=== PATIENT | male | born 1945 | race African-American/Black ===

== ENCOUNTER 2019-04-01 09:22 | Inpatient (IN) ==
--- NOTE | 2019-03-26 14:14 | Anesthesiology Consultation ---
Date of Service March 26, 2019 Assessment & Plan Chart Review Chart Review: Acceptable Risk for Surgery and Patient NOT seen in Pre Admission Testing Consults Requested none ASA ASA4 Proposed Anesthesia Anesthesia Type: General Anesthesia Line Insertion: Arterial line History Surgery Operation Date: 04/01/19 07:30 Proposed Procedures p Robotic Video Assisted Thoracoscopy - Zoltan Galdamez MD, FACS Height/Weight Height: 5 ft 6 in Weight: 74.843 kg Allergies Allergy/AdvReac Type Severity Reaction Status Date / Time penicillin V Allergy Unknown UNKN Verified 03/11/19 08:20 Medications Home Medications Medication Instructions Recorded Confirmed Last Taken aspirin [Aspirin Low Dose] 81 mg PO QAM 01/06/19 03/11/19 01/29/19 21:00 enalapril maleate 5 mg PO QAM 01/06/19 03/11/19 01/29/19 08:00 metformin 500 mg PO BID 01/06/19 03/11/19 01/29/19 21:00 timolol 1 drp OPHTHALMIC (EYE) BID 01/06/19 03/11/19 01/29/19 17:00 Past Medical History Medical History Diabetes mellitus, type 2 NIDDM HTN (hypertension) Heart murmur per anesthesia questionnaire Hemoptysis CURRENT ISSUE History of anemia Hx of eczema Inmate in correctional facility [facility] Exercise / Class Metabolic Activity III < 4 Walking/Shop/Light housework Past Surgical History Surgical History Hx of cataract extraction S/P bronchoscopy with biopsy p Endobronchial Ultrasound Flexible Bronchoscopy with Biopsies dr. Galdamez 01-30-19 Past Anesthesia History No Hx of Anesthesia Complications and No Family Hx of Anesthesia Complications History of PONV No Hx of PONV and No Hx of Motion Sickness Social History Smoking Status: Former smoker (QUIT AT AGE 55, SMOKED APPROXIMATELY 30 YEARS) Do You Dip or Chew Tobacco: No Hx Alcohol Use: No Hx Substance Use: No Testing Laboratory Results WBC: 03/22/2019 Hcg: Hct: PLATELETS: SODIUM: 143 POTASSIUM: CHLORIDE: 101 CO2: 25 BUN: 21 CREATININE: 0.3 GLUCOSE: PT: PTT: INR: UA: TYPE AND SCREEN: Electrocardiogram Date: 03/11/19 Findings: + NSR @ (at 93 )
[~2019-04-01 09:22] MED LIST: LR 15ML/HR IV SCH
[2019-04-01 10:37] LABS: Basophils # (auto) 0.04 K/uL (0-0.2); Basophils % (auto) 0.6 %; Eosinophils # (auto) 0.11 K/uL (0-0.5); Eosinophils % (auto) 1.7 %; Hematocrit (blood only) 33.7 % (42-52); Lymphocytes # (auto) 1.89 K/uL (1.2-3.4); Lymphocytes % (auto) 29.4 %; Mean Corpuscular Volume 88.9 fL (80-100); Mean Platelet Volume 11.4 fL (7.4-10.4); Monocytes # (auto) 0.46 K/uL (0.11-0.59); Monocytes % (auto) 7.2 %; Neutrophils # (auto) 3.93 K/uL (1.4-6.5); Neutrophils % (auto) 61.1 %; Platelet Count 206 K/uL (130-400); RDW Coefficient of Variation 14.2 % (11.5-14.5); RDW Standard Deviation 46.3 fL (36.4-46.3); Red Blood Count 3.79 M/uL (4.7-6.1); White Blood Count 6.43 K/uL (4.8-10.8)
[2019-04-01 10:38] LABS: Mean Corpuscular Hgb Conc 32.6 g/dL (32-36)
--- NOTE | 2019-04-01 12:34 | History & Physical Report ---
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 We can proceed with a possible segmentectomy although remained up offering him a lobectomy. His pulmonary function show he would tolerate if necessary although he is rather short of breath that I would prefer to avoid this if possible. We had a long discussion in the office about possible risks including not limited to air leaks, bleeding lung injury, pneumonia, infections and blood clots. He understands. We will proceed on 04/01/2019. Present on Admission?: Yes (2) Mediastinal lymphadenopathy: Present on Admission?: Yes History of Present Illness This is a 73-year-old inmate who has a chronic cough which is productive of sputum. He worked up and found to have occlusion of the anterior segment of his right upper lobe. I bronchoscoped him and indeed this bronchus is occluded however all pathology has been benign. He is been worked up completely in multiple physicians have been involved. We are going to proceed with a segmentectomy of the anterior segment, possible lobectomy of his right upper lobe today. We had a long talk about this. He understands. We will proceed with a robot-assisted right thoracoscopy and resection of this chronically atelectatic area. Primary Care Provider: ARLEY Dawson Allergies Allergy/AdvReac Type Severity Reaction Status Date / Time penicillin V Allergy Unknown UNKN Verified 04/01/19 10:18 Home Medications Home Medications Medication Instructions Recorded Confirmed Type aspirin [Aspirin Low Dose] 81 mg PO QAM 01/06/19 04/01/19 History enalapril maleate 5 mg PO QAM 01/06/19 04/01/19 History metformin 500 mg PO BID 01/06/19 04/01/19 History timolol 1 drp OPHTHALMIC (EYE) BID 01/06/19 04/01/19 History Past Med/Surg History Medical History Diabetes mellitus, type 2 NIDDM HTN (hypertension) Heart murmur per anesthesia questionnaire Hemoptysis CURRENT ISSUE History of anemia Hx of eczema Inmate in correctional facility [facility] Surgical History Hx of cataract extraction S/P bronchoscopy with biopsy p Endobronchial Ultrasound Flexible Bronchoscopy with Biopsies dr. Galdamez 01-30-19 Social History Preferred Language: Vietnamese Communication Ability: Effective Composite Laminator Required: No Beliefs That Will Affect Care: None Current Living Situation: Other Other Information That Helps Us Care for You: No Smoking Status: Former smoker (QUIT AT AGE 55, SMOKED APPROXIMATELY 30 YEARS) Do You Dip or Chew Tobacco: No ; Second Hand Exposure: No ; Tobacco Cessation Education Requested by Patient: No Hx Alcohol Use: No Hx Substance Use: No Review of Systems Review of Systems: All since was reviewed and really the only thing of note is the fact that the patient has dyspnea on exertion that has worsened. He used to be quite active playing handball and other sports is unable to do so although he is 73. Otherwise there have been no changes. The other systems were unremarkable. Physical Exam Physical Exam: Well-developed well-nourished male who stands 5 feet 6 inches tall weighs about 148 pounds. He looks much younger than his stated age. He is awake and alert. Extra documents are intact. Pupils are equal round reactive. Sclera anicteric. He is edentulous with upper and lower denture plates. Neck is supple. He has no supraclavicular cervical lymphadenopathy. He has mildly decreased breath sounds but really moving air well without wheezing or rails. He has a regular rate and rhythm of his heart. He has no carotid bruits or thyroid nodules. His abdomen is flat soft nontender. Good peripheral pulses. He is awake alert and oriented. Has no focal deficits. He has no joint effusions. Neurologically is completely intact. Cranial nerves II through XII are intact and he is awake alert oriented conversive. Results & Data Vital Signs (Past 12 Hours) Vital Signs Temp Pulse Resp BP Pulse Ox 04/01/19 10:32 36.7 C 94 H 20 162/99 H 99 PG Care Time/CCT Total # of Minutes Spent Total Time Spent with Patient: Total time spent is greater than 50% in coordination of care (as documented) at patient's floor/unit and/or counseling patient:
[2019-04-01] MEDS ORDERED: BUPIVACAINE 0.5 % 5 MG/1 ML MPF 30ML VIAL ONE (12:38)
[2019-04-01] MEDS ORDERED: BUPIVACAINE LIPOSOME 1.3% 266 MG/20 ML VIAL ONE (12:38)
[2019-04-01] MEDS ORDERED: SODIUM CHLORIDE 0.9% PF 50 ML VIAL ONE (12:38)
[2019-04-01] MEDS ORDERED: DEXAMETHASONE SOD INJ 4 MG/ML VIAL ONE (12:41)
[2019-04-01] MEDS ORDERED: ONDANSETRON INJ 2 MG/ML 2 ML VIAL ONE ×2 (12:41→14:44)
[2019-04-01] MEDS ORDERED: PROPOFOL IV EMULSION 10 MG/ML 20 ML VIAL IV ONE ×2 (12:41→16:12)
[2019-04-01] MEDS ORDERED: MIDAZOLAM HCL 1 MG/ML 2ML VIAL ONE (12:41)
[2019-04-01] MEDS ORDERED: ePHEDrine sulfate 50 MG/ML SYR ONE (12:41)
[2019-04-01] MEDS ORDERED: ROCURONIUM BROMIDE 10 MG/ML 5 ML VIAL ONE (12:41)
[2019-04-01] MEDS ORDERED: PHENYLEPHRINE 100MCG/ML 5ML SYR ONE (12:41)
[2019-04-01] MEDS ORDERED: fentaNYL citrate 100 MCG/2 ML VIAL ONE (12:42)
[2019-04-01] MEDS ORDERED: CLINDAMYCIN PHOS 300 MG/2 ML VIAL ONE (14:43)
[2019-04-01] MEDS ORDERED: PHENYLEPHRINE HCL 10 MG/ML VIAL ONE ×2 (14:43→16:31)
[2019-04-01] MEDS ORDERED: ESMOLOL HCL INJ 10 MG/ML 10ML VIAL IV ONE (14:44)
--- NOTE | 2019-04-01 17:40 | Post Operative Brief Note ---
PG Immediate Post Op with CF Date of Surgery April 01, 2019 Pre & Post Diagnosis Operation Date: 04/01/19 11:30 Pre-Op Diagnosis: Right Upper Lobe Bronchial Occlusion Unknown Etiology Post-Op Diagnosis: Right Upper Lobe Bronchial Occlusion Unknown Etiology I identified the patient and participated in the time-out.: Yes Procedure Operation Date: 04/01/19 11:30 Actual Procedures p Right Robotic Video-Assisted Thoracoscopy with Right Upper Lobectomy(Right) - Zoltan Galdamez MD, FACS Surgeon Zoltan Galdamez MD, FACS Underwriting Clerk Nelson FUENTES Estimated Blood Loss 100 Findings Consistent with Post-Op Diagnosis Specimens Specimen Description: Permanent specimens (sent fresh) A: R8 lymph node B: Level 7 lymph node packet C. R11 lymph node D. R2 R4 lymph node bundle E. R10 lymph node x2 F. R4 Lymph node Frozen: 1. Portion of R4 lymph nodes 2. Right Upper Lobe for Bronchial Margin Portion of Level 7 lymph node packet sent for routine culture, gram stain, anaerobic/aerobic microbes, fungal smear and acid fast (AFB) R11 lymph node sent for routine culture, gram stain, anaerobic/aerobic microbes, fungal smear and acid fast (AFB) Drains Chest Tube and Chao Catheter
[2019-04-01] MEDS ORDERED: METOCLOPRAMIDE HCL INJ 5 MG/ML 2 ML VIAL IV ONE (18:00)
[2019-04-01] MEDS ORDERED: ATROPINE SULFATE 0.1 MG/ML 10ML SYR IV PRN (18:13)
[2019-04-01] MEDS ORDERED: HYDROmorphone INJ 1 MG/ML SYRINGE IV PRN (18:13)
[2019-04-01] MEDS ORDERED: ONDANSETRON INJ 2 MG/ML 2 ML VIAL IV PRN ×2 (18:13→19:19)
[2019-04-01] MEDS ORDERED: KETOROLAC 30 MG/ML VIAL IV PRN (18:13)
[2019-04-01] MEDS ORDERED: LABETALOL HCL IV 5 MG/ML 20ML IV ONE (18:14)
[2019-04-01] MEDS: LABETALOL HCL IV 5 MG/ML 20ML IV PRN ×3 (18:15→18:25)
--- NOTE | 2019-04-01 18:22 | XRay Report ---
XR chest 1V portable CLINICAL HISTORY: RUL postoperative evaluation COMPARISON STUDY: 01/30/2019 FINDINGS: Interval right apical postoperative resection changes. Small right apical pneumothorax with maximum pleural separation of 1.5 cm. Trace amount of supraclavicular subcutaneous emphysematous phyllis nge. Right apical chest drainage tube in position. IMPRESSION: Small right apical pneumothorax post right thoracotomy. The above report was generated using voice recognition software. It may contain grammatical, syntax or spelling errors. Electronically signed by: Winston Prakash M.D. 04/01/2019 6:21 PM
--- NOTE | 2019-04-01 18:43 | Anesthesiology Progress Note ---
Date of Service April 01, 2019 Anesthesia Post Procedure Vital Signs Vital Signs: Temp Pulse Pulse Resp BP BP Pulse Ox 04/01/19 18:35 80 18 176/105 H 98 04/01/19 18:25 81 15 163/110 H 97 04/01/19 18:15 88 18 183/100 H 100 04/01/19 18:07 36.0 C L 89 20 200/117 H 100 04/01/19 10:32 36.7 C 94 H 20 162/99 H 99 Transfer of Care Handoff Completed per policy Notes Mental Status: alert / awake / arousable Patient Amnestic to Procedure: Yes Nausea / Vomiting: adequately controlled Pain: adequately controlled Airway Patency, RR, SpO2: stable & adequate BP & HR: stable & adequate Hydration State: stable & adequate Anesthetic Complications: no major complications apparent
[2019-04-01] MEDS ORDERED: OXYCODONE HCL IR 5 MG TAB (IMMEDIATE RELEASE) PO PRN (19:19)
[2019-04-01] MEDS ORDERED: MoRPHine SULFATE 2 MG/ML CARP IV PRN (19:19)
--- NOTE | 2019-04-01 19:33 | Operative Report ---
DATE OF OPERATION: 04/01/2019 PREOPERATIVE DIAGNOSIS: Occlusion of bronchus, anterior segment, right upper lobe. POSTOPERATIVE DIAGNOSIS: Occlusion of bronchus, anterior segment, right upper lobe. PROCEDURE: Robot-assisted thoracoscopic right upper lobectomy and mediastinal lymphadenectomy. SURGEON: Zoltan Galdamez MD. INTERNAL MEDICINE PHYSICIAN: ALFREOD Paulino (Mr. Bolanos was present for the entire case. He was at the patient's bedside while I was at console). ANESTHESIA: General anesthesia with endotracheal intubation using a double lumen tube. SPECIFICS OF PROCEDURE AND FINDINGS: Salvador Manuel is a very nice 73-year-old inmate who has a remote history of cigarette smoking and has chronic obstructive pulmonary disease who was found to have occlusion of the segmental bronchus leading to the anterior segment of the right upper lobe. I bronchoscoped him and brushed him and did needle biopsies and we did not see evidence of malignancy. He had been ill from this. He continues to cough and has essentially purulent material draining from this highly stenotic airway and he has markedly dilated airways distal to this full of fluid. He has failed conservative management and we elected to proceed with an attempt at anterior segmentectomy of the anterior segment of the right upper lobe. The patient also has markedly enlarged lymph nodes, which are calcified. I brought the patient to the operating room and did a robot-assisted thoracoscopic dissection. I actually dissected out the veins very nicely. However, the lymph nodes were extremely difficult to dissect through; there was a tremendous amount of inflammation. After dividing the vein draining the anterior segment and dissecting out the vessels, I thought it was going to be not only difficult but hazardous. After spending quite a bit of time with this, I elected to proceed with a right upper lobectomy. It should be noted that I did bronchoscope this patient while he was on the table and there was no change. He still had purulent material draining from a subtotally occluded segmental bronchus leading to his anterior segment. I then proceeded with a right upper lobectomy. He did well and was extubated in the room with negligible blood loss. He tolerated it well. DESCRIPTION OF PROCEDURE: The patient was brought to the operating room and laid in supine position. General anesthesia induced and endotracheal intubation performed with a double lumen tube. The patient was placed in the left lateral decubitus position, right chest prepped and draped in usual sterile fashion. After appropriate timeout had been called and prophylactic antibiotics given, an incision was made in about the eighth interspace close to the mid axillary line with an 5 mm port. Upon entering, it could be seen we really had very little in the way of adhesions to the chest wall. Carbon dioxide was insufflated. We then put an 8 mm port anterior an interspace above this and an 8 mm port posterior and then put a 5 mm port more posterior an interspace below. I put in purchasing administrative assistant's port just above the diaphragm anteriorly between the camera port and the anterior most port. It should be noted that we mixed Exparel 266 mg in 20 mL of solution with 30 mL of 0.5% bupivacaine and 250 mL of normal saline. This was injected in each of the port sites before we made our incisions and also injected into the intercostal spaces to perform an intercostal block intrathoracically under thoracoscopic guidance. We then docked the robot. Upon entering, it could be seen that he had fairly well-developed fissures. I took down the inferior pulmonary ligament and dissected out level 9 and level 8 nodes. I then came upon the level 7 node. I removed this entire packet essentially intact. There were marked calcifications, very large. We did this with a [place] bipolar dissector and really had very little in the way of bleeding here. We had dissected out the bronchus nicely. I then dissected out the sump node from the level 11, which was between the right upper lobe bronchus and the bronchus intermedius distally. After removing this large calcified node, it exposed the posterior ascending or A3 artery quite nicely. I then went above this and dissected out the level 2 and 4 nodes, they were markedly calcified. I then lifted up the azygos and took the level 10 nodes off essentially in their entirety. I then anteriorly dissected out the pleura posterior to the phrenic nerve, carried it down to below the takeoff of the middle lobe vein. The veins were easily identified. I then went into the fissure and completed this both posteriorly and anteriorly and identified the artery and the vein. The nodes were markedly enlarged and stuck. I then went anteriorly and I dissected out the vein draining the anterior segment and divided it with an Endo-FREDERIC stapler. We left the apical vein and the vein draining the posterior vein and then dissected out the bronchus. The bronchus and the artery were quite stuck, in fact we got into bleeding with the remaining veins and artery, which was easily controlled with clips. However, it was markedly adherent. I did divide the arteries to the anterior segment. That was a very difficult dissection. I then elected to proceed with a lobectomy. At this point, it was much easier just to proceed with dividing the A3 artery and then the apical anterior artery with Endo-FREDERIC staplers. I then fired a stapler across the bronchus. I then inflated the lung, we saw no evidence of an air leak. An Endobag was used and we removed the upper lobe through the assistance port, although we had to open it a bit. We then placed a 24-Turkmen chest tube in the camera port and directed towards the apex and held in place with heavy silk suture. The larger incisions were closed with 0 Vicryl to reapproximate the muscle and fascia. 4-0 Monocryl was used in running subcuticular fashion to approximate the wound edges. As stated, there was a tiny air leak at the conclusion of the case. Blood loss was negligible. He was stable throughout the case and awakened without difficulty from anesthesia and was extubated in the room. He was transported to postanesthesia care unit in stable condition. I attest to the content of the Intraoperative Record and any orders documented therein. Any exception s are noted below.
[2019-04-01] MEDS ORDERED: GLUCOSE 10 TABS/TUBE PO PRN (20:00)
[2019-04-01] MEDS ORDERED: GLUCAGON FOR INJ 1 MG VIAL IM PRN (20:00)
[2019-04-01] MEDS ORDERED: CARBOHYDRATES FOR HYPOGLYCEMIA PO PRN (20:00)
[2019-04-01] MEDS ORDERED: GLUCOSE 40% GEL 15 GM TUBE PO PRN (20:00)
[2019-04-01] MEDS ORDERED: DEXTROSE 50% 50 ML SYRINGE IV PRN (20:00)
[2019-04-01] MEDS ORDERED: PNEUMOCOCCAL POLYSACCHARIDES 25 MCG/0.5 ML VIAL/SYR IM ONE (21:00)
[2019-04-01] MEDS ORDERED: INFLUENZA VACCINE HIGH DOSE 65+ 0.5 ML SYR IM ONE (21:00)
[2019-04-01] MEDS ORDERED: PNEUMOCOCCAL ADMINISTRATION CHARGE ONE (21:00)
[2019-04-01] MEDS ORDERED: INFLUENZA ADMINISTRATION CHARGE ONE (21:00)
[2019-04-01] MEDS: ACETAMINOPHEN 1,000 MG/100 ML VIAL IV SCH (21:45)
[2019-04-01] MEDS: DOCUSATE SODIUM 100 MG CAP PO SCH (21:47)
[2019-04-01] MEDS: TIMOLOL MALEATE 0.25% OP SOLN 5 ML BTL OP SCH (21:48)
[2019-04-01] MEDS: INSULIN ASPART 100 UNITS/ML 3 ML PEN SC SCH (21:50)
[2019-04-01] MEDS: SODIUM CHLORIDE 0.9% 1000ML 1,000 ML IV SCH (23:58)
[2019-04-02] MEDS: METOCLOPRAMIDE HCL INJ 5 MG/ML 2 ML VIAL IV SCH ×2 (01:52→11:00)
[2019-04-02] MEDS: ACETAMINOPHEN 1,000 MG/100 ML VIAL IV SCH (03:26)
[2019-04-02] MEDS ORDERED: CLINDAMYCIN PHOS 900 MG/6 ML VIAL IV SCH (06:00)
[2019-04-02 06:26] LABS: Basophils # (auto) 0.01 K/uL (0-0.2); Basophils % (auto) 0.1 %; Hematocrit (blood only) 31.4 % (42-52); Hemoglobin 10.2 g/dL (14.0-18.0); Immature Granulocytes # (auto) 0.03 K/uL (0.00-0.02); Immature Granulocytes % (auto) 0.2 %; Lymphocytes # (auto) 1.43 K/uL (1.2-3.4); Lymphocytes % (auto) 11.6 %; Mean Corpuscular Hemoglobin 29.1 pg (25-34); Mean Corpuscular Volume 89.5 fL (80-100); Mean Platelet Volume 11.6 fL (7.4-10.4); Monocytes # (auto) 1.44 K/uL (0.11-0.59); Monocytes % (auto) 11.7 %; Neutrophils # (auto) 9.45 K/uL (1.4-6.5); Neutrophils % (auto) 76.4 %; Platelet Count 193 K/uL (130-400); RDW Coefficient of Variation 14.4 % (11.5-14.5); RDW Standard Deviation 47.5 fL (36.4-46.3); Red Blood Count 3.51 M/uL (4.7-6.1); White Blood Count 12.36 K/uL (4.8-10.8)
[2019-04-02 06:35] LABS: Mean Corpuscular Hgb Conc 32.5 g/dL (32-36)
[2019-04-02 06:53] LABS: BUN Creatinine Ratio 11.8 (10-20); Calcium 7.9 mg/dl (8.5-10.1); Creatinine Clr Calc Pharmacy 29.4 ml/min; Est GFR (African American) 37.2; Est GFR (Non-African American) 32.1; Potassium 4.9 mmol/L (3.5-5.1)
--- NOTE | 2019-04-02 07:24 | XRay Report ---
XR chest 1V portable HISTORY: 73 years-old Male RUL follow-up study in a patient with postoperative changes of the right lung COMPARISON: Chest radiograph 04/01/2019 TECHNIQUE: Portable AP view of the chest FINDINGS: Cardiomediastinal and hilar silhouettes are unchanged. Postoperative changes of the right lung. Right -sided chest tube is noted with distal tip terminating adjacent to the right lung apex, likely latera l in relation to comparison study. There appears to be decreased size of the right apical pneumothora x, now with pleural separation of 11 mm. Mild subcutaneous emphysema of the right supraclavicular dis tribution. Unchanged right hemidiaphragmatic elevation. Degenerative changes of the shoulders and spi ne. IMPRESSION: 1. Postoperative changes of the right lung with decreased size of the small right apical pneumothorax . 2. Right-sided chest tube appears to be slightly lateral in position in relation to yesterday's exam. The above report was generated using voice recognition software. It may contain grammatical, syntax o r spelling errors. Electronically signed by: Solitario Shanks M.D. 04/02/2019 7:22 AM
--- NOTE | 2019-04-02 08:15 | Progress Note ---
DATE: 04/02/2019 Mr. Manuel was seen today one day status post a robot-assisted thoracoscopic right upper lobectomy. His gross finding on pathology were interesting. He has an occlusion of the segmental bronchus in the right upper lobe and I attempted a segmentectomy; however, the lymph nodes were very adherent and it was very difficult. For this reason, I performed a right upper lobectomy which his pulmonary function studies showed he would tolerate well. The patient is on room air today. He has been ambulating in the hallway. He does not have a productive cough. He has no air leak. He has drained very little from his chest tube. His chest x-ray looks good. All in all I am quite pleased with him. We are going to probably remove his chest tube in the morning. The fungal smears and gram stains have been negative for any organisms to date. The gross findings in the pathology lab when we performed frozen section were impressive. His airways in his anterior segment of the right upper lobe were indeed dilated and full of what appeared to be purulent material. This would account for his productive cough for the last several months. He has tolerated this well. We will probably remove his chest tube in the morning. [facility] CAMPUSFilomena
--- NOTE | 2019-04-02 08:46 | Anesthesiology Progress Note ---
Date of Service April 02, 2019 Anesthesia Post Procedure Vital Signs Vital Signs: Temp Pulse Pulse Resp BP BP Pulse Ox 04/02/19 07:15 36.8 C 86 18 119/68 91 04/02/19 05:30 95 04/02/19 05:15 36.7 C 86 18 120/65 92 04/02/19 03:15 36.8 C 95 H 18 118/69 93 04/02/19 01:20 36.7 C 91 H 16 94/59 L 94 04/01/19 23:15 36.8 C 94 H 16 94/53 L 94 04/01/19 22:19 37.1 C 105 H 20 154/78 H 98 04/01/19 21:10 37.1 C 101 H 20 144/81 H 98 04/01/19 20:25 36.9 C 102 H 18 153/96 H 94 04/01/19 19:45 36.7 C 83 16 169/87 H 96 04/01/19 19:22 36.5 C 84 18 164/91 H 95 04/01/19 18:55 82 18 173/98 H 98 04/01/19 18:45 36.4 C L 82 18 155/100 H 98 04/01/19 18:35 80 18 176/105 H 98 04/01/19 18:25 81 15 163/110 H 97 04/01/19 18:15 88 18 183/100 H 100 04/01/19 18:07 36.0 C L 89 20 200/117 H 100 04/01/19 10:32 36.7 C 94 H 20 162/99 H 99 Pain Intensity Right Chest: Pain Intensity: 5 Notes Mental Status: alert / awake / arousable and participated in evaluation Patient Amnestic to Procedure: Yes Nausea / Vomiting: adequately controlled Pain: adequately controlled Airway Patency, RR, SpO2: stable & adequate BP & HR: stable & adequate Hydration State: stable & adequate Anesthetic Complications: no major complications apparent and Pt Satisfied with anesthetic care
[2019-04-02] MEDS ORDERED: ENALAPRIL MALEATE 5 MG TAB PO SCH (09:00)
[2019-04-02] MEDS: TIMOLOL MALEATE 0.25% OP SOLN 5 ML BTL OP SCH ×2 (09:30→20:16)
[2019-04-02] MEDS: ASPIRIN 81 MG ECTAB PO SCH (09:30)
[2019-04-02] MEDS: DOCUSATE SODIUM 100 MG CAP PO SCH ×2 (09:30→20:15)
[2019-04-02] MEDS: INSULIN ASPART 100 UNITS/ML 3 ML PEN SC SCH ×4 (09:31→21:16)
[2019-04-02] MEDS: ENOXAPARIN INJ 30 MG/0.3 ML SYR SQ SCH (09:33)
[2019-04-02] MEDS: SODIUM CHLORIDE 0.9% 1000ML 1,000 ML IV SCH (10:15)
[2019-04-02] MEDS: ACETAMINOPHEN 325 MG TAB PO SCH ×3 (11:00→23:40)
[2019-04-03] MEDS: ACETAMINOPHEN 325 MG TAB PO SCH (05:32)
[2019-04-03 06:18] LABS: BUN Creatinine Ratio 11.7 (10-20); Calcium 8.2 mg/dl (8.5-10.1); Creatinine Clr Calc Pharmacy 36.6 ml/min; Est GFR (African American) 48.5; Est GFR (Non-African American) 41.8; Potassium 4.7 mmol/L (3.5-5.1)
--- NOTE | 2019-04-03 07:19 | XRay Report ---
XR chest 1V portable CLINICAL HISTORY: RUL COMPARISON STUDY: Chest radiograph April 02, 2019. FINDINGS: Right apical chest tube is in place. Elevation of the right hemidiaphragm is noted. There i s no evidence for pulmonary edema. No pneumothorax is identified. Cardiac mediastinal silhouette is u nremarkable. IMPRESSION: Right chest tube in place. No pneumothorax identified. Electronically signed by: Terrence Celaya M.D. 04/03/2019 7:18 AM
[2019-04-03] MEDS: INSULIN ASPART 100 UNITS/ML 3 ML PEN SC SCH (09:11)
[2019-04-03] MEDS: ENOXAPARIN INJ 30 MG/0.3 ML SYR SQ SCH (09:12)
[2019-04-03] MEDS: DOCUSATE SODIUM 100 MG CAP PO SCH (09:12)
[2019-04-03] MEDS: ASPIRIN 81 MG ECTAB PO SCH (09:12)
[2019-04-03] MEDS: TIMOLOL MALEATE 0.25% OP SOLN 5 ML BTL OP SCH (09:13)
--- NOTE | 2019-04-03 09:22 | XRay Report ---
XR chest 1V portable CLINICAL HISTORY: tube removal COMPARISON STUDY: 04/03/2019 FINDINGS: Interval removal of the right-sided chest tube. No significant postprocedural pneumothorax. Lungs remain grossly clear. IMPRESSION: No evidence for pneumothorax post right-sided chest tube removal. The above report was generated using voice recognition software. It may contain grammatical, syntax or spelling errors. Electronically signed by: Winston Prakash M.D. 04/03/2019 9:21 AM
--- NOTE | 2019-04-04 05:27 | Discharge Summary ---
DISCHARGE DIAGNOSES: 1. Chronic occlusion of anterior segment, right upper lobe with postobstructive atelectasis and pneumonia. 2. History of cigarette smoking. HOSPITAL COURSE: Salvador Manuel is a very nice 73-year-old incarcerated gentleman who has been having signs and symptoms of upper respiratory infection for well over a year. He was found to have atelectasis of the anterior segment of his right upper lobe and a bronchoscopy showed the segmental bronchus to be essentially occluded. This was biopsied several times and we did an endobronchial ultrasound and we saw no evidence of malignancy. After a long discussion and workup, we elected to proceed with surgery. On 04/01/2019, the patient underwent an uncomplicated robot-assisted thoracoscopic attempted a wedge resection; however, the lymph nodes were very hard and calcified and adherent. I elected to proceed with a lobectomy as we could see that he would tolerate it. It is still unclear to me exactly what the etiology of this problem is. His margins were negative for carcinoma. The patient did very well, was weaned off of oxygen a few hours after surgery. He is ambulating in the hallway, tolerating a regular diet. He was discharged home on postoperative day #2 after chest tube was removed. His x-ray looked quite good. He is on room air and ambulating. I think he is going to improve with this. He was [facility] on 04/03/2019 and we will see him back in the office in the next week or so with an x-ray.
== END 2019-04-03 12:12 | DRG 167 ==
LOC: ASU 09:22 → 3W 17:49

== ENCOUNTER 2019-04-03 16:18 | Observation (INO) ==
--- NOTE | 2019-04-03 17:45 | XRay Report ---
XR chest 1V portable CLINICAL HISTORY: Sepsis COMPARISON STUDY: 04/03/2019 FINDINGS: The heart is normal in size. There is elevation right hemidiaphragm. There is right hilar p rominence, unchanged from the prior study. Postsurgical changes of the right hemithorax are suspected . There is no failure. There is no focal pulmonary consolidation.[ IMPRESSION: Postsurgical change. No acute findings. Electronically signed by: John Elliott M.D. 04/03/2019 5:43 PM
[2019-04-03] MEDS ORDERED: SODIUM CHLORIDE 0.9% 1000ML 1,000 ML IV ONE (18:09)
[2019-04-03 18:27] LABS: Basophils # (auto) 0.03 K/uL (0-0.2); Basophils % (auto) 0.2 %; Eosinophils # (auto) 0.01 K/uL (0-0.5); Eosinophils % (auto) 0.1 %; Hematocrit (blood only) 32.1 % (42-52); Hemoglobin 10.3 g/dL (14.0-18.0); Immature Granulocytes # (auto) 0.04 K/uL (0.00-0.02); Immature Granulocytes % (auto) 0.3 %; Lymphocytes # (auto) 1.74 K/uL (1.2-3.4); Lymphocytes % (auto) 13.1 %; Mean Corpuscular Hemoglobin 28.7 pg (25-34); Mean Corpuscular Hgb Conc 32.1 g/dL (32-36); Mean Corpuscular Volume 89.4 fL (80-100); Mean Platelet Volume 11.8 fL (7.4-10.4); Monocytes # (auto) 1.39 K/uL (0.11-0.59); Monocytes % (auto) 10.5 %; Neutrophils # (auto) 10.08 K/uL (1.4-6.5); Neutrophils % (auto) 75.8 %; Platelet Count 208 K/uL (130-400); RDW Coefficient of Variation 14.7 % (11.5-14.5); RDW Standard Deviation 48.8 fL (36.4-46.3); Red Blood Count 3.59 M/uL (4.7-6.1); White Blood Count 13.29 K/uL (4.8-10.8)
[2019-04-03 18:31] LABS: INR 1.1 (0.9-1.1); Partial Thromboplastin Ratio 1.1; Partial Thromboplastin Time 30.2 Seconds (21.0-31.0); Prothrombin Time 10.9 Seconds (9.0-12.0)
[2019-04-03 18:39] LABS: Albumin Level 3.2 gm/dl (3.4-5.0); BUN Creatinine Ratio 11.4 (10-20); Blood Urea Nitrogen 17 mg/dl (7-18); Calcium 8.5 mg/dl (8.5-10.1); Carbon Dioxide 25 mmol/L (21-32); Chloride 104 mmol/L (98-107); Creatinine Clr Calc Pharmacy 39.3 ml/min; Est GFR (African American) 52.8; Est GFR (Non-African American) 45.6; Glucose 138 mg/dl (70-99); Sodium 134 mmol/L (136-145)
[2019-04-03 18:47] LABS: Alanine Aminotransferase 19 U/L (12-78); Albumin Globulin Ratio 0.6 (0.9-2); Alkaline Phosphatase 80 U/L (45-117); Aspartate Aminotransferase 26 U/L (15-37); Bilirubin,Total 0.5 mg/dl (0.2-1); Total Protein 8.2 gm/dl (6.4-8.2); Troponin I < 0.015 ng/ml (0-0.045)
[2019-04-03] MEDS ORDERED: ONDANSETRON INJ 2 MG/ML 2 ML VIAL IV PRN (19:27)
[2019-04-03] MEDS ORDERED: POLYETHYLENE (MIRALAX) 17 GM PACK PO PRN (19:27)
[2019-04-03] MEDS ORDERED: ACETAMINOPHEN 325 MG TAB PO PRN (19:27)
[2019-04-03] MEDS ORDERED: ALUMINUM/MAGNESIUM SUSP 30 ML UDC PO PRN (19:27)
[2019-04-03 19:56] LABS: Appearance Urine Clear (Clear); Bilirubin Urine Negative (Negative); Blood Urine Trace (Negative); Color Urine Yellow; Glucose Urine UA Negative (Negative); Ketones Urine Negative (Negative); Leukocyte Esterase Urine Negative (Negative); Nitrite Urine Negative (Negative); Protein Urine Trace (Negative); Urobilinogen Urine Negative (Negative); pH Urine 6.5 (4.5-7.5)
--- NOTE | 2019-04-03 19:59 | Emergency Department Note ---
Entered by Jadyn Cassidy acting as a scribe for Ever Sosa DO History of Present Illness General Chief complaint: Illness Stated complaint: FEVER/CHILLS Time Seen by Provider: 04/03/19 17:35 Source: patient and other (retirement) History of Present Illness Onset (ago): minute(s) (prior to arrival) Location: chest Pain Consistency: + intermittent Maximum Pain Intensity: 0 Quality: + other (increased heart rate) Associated symptoms: + other (temperature of 100) The patient is a 73 year old male who presents to the Emergency Room with complaints of an intermittent increased heart rate and a temperature of 100 beginning just prior to arrival. The patient is an inmate who was released from the hospital earlier today. The retirement states the patient visited the [facility] after arriving back at the retirement, and was told he was going back to the ED. Home Medications Home Medications Medication Instructions Recorded Confirmed Type aspirin [Aspirin Low Dose] 81 mg PO QAM 01/06/19 04/03/19 History enalapril maleate 5 mg PO QAM 01/06/19 04/03/19 History metformin 500 mg PO BID 01/06/19 04/03/19 History timolol 1 drp OPHTHALMIC (EYE) BID 01/06/19 04/03/19 History Allergies Allergy/AdvReac Type Severity Reaction Status Date / Time penicillin V Allergy Unknown UNKN Verified 04/03/19 16:38 Past Med/Surg History Medical History Diabetes mellitus, type 2 NIDDM HTN (hypertension) Heart murmur per anesthesia questionnaire Hemoptysis CURRENT ISSUE History of anemia Hx of eczema Inmate in [facility] facility [facility] History Hx of cataract extraction S/P bronchoscopy with biopsy p Endobronchial Ultrasound Flexible Bronchoscopy with Biopsies dr. Galdamez 01-30-19 Family History Other No pertinent family history Social History Preferred Language: Bangladeshi Communication Ability: Effective Lifter Required: No Beliefs That Will Affect Care: None Current Living Situation: Other Feels Safe at Home: Yes Smoking Status: Never smoker Second Hand Exposure: No ; Hx Alcohol Use: No Hx Substance Use: No Review of Systems See HPI for pertinent positives & negatives. and A total of 10 systems reviewed and were otherwise negative Physical Exam Vital Signs Vital Signs - 24 hr 04/03/19 16:31 Temperature 37.7 C H Temperature Source Oral Sepsis Recent Fever Within 48 Hours No Sepsis New/Unexplained Change in Mental Status No Sepsis Action Taken by Nursing No Action Required Pulse Rate 128 H Pulse Rhythm Regular Pulse Strength Normal Respiratory Rate 16 Respiratory Effort / Characteristics Non-Labored Respiratory Depth Normal Respiratory Pattern Regular Blood Pressure 141/108 H Blood Pressure Mean 119 Blood Pressure Position Lying Pulse Oximetry 94 Oxygen Delivery Method Room Air CONSTITUTIONAL/VITAL SIGNS: Reviewed / noted above. GENERAL: Non-toxic in appearance. INTEGUMENTARY: Warm, dry, and [place]. HEAD: Normocephalic. EYES: without scleral icterus or trauma. ENT/OROPHARYNX: clear and moist. LYMPHADENOPATHY/NECK: Is supple without lymphadenopathy or meningismus. RESPIRATORY: Lungs clear and equal. CARDIOVASCULAR: Tachycardic rate and normal rhythm. GI/ABDOMEN: Soft and nontender. No organomegaly or pulsatile mass. No rebound or guarding. Normal bowel sounds. EXTREMITIES: Warm and well perfused. BACK: No CVA tenderness. NEUROLOGICAL: Intact without focal deficits. PSYCHIATRIC: normal affect. MUSCULOSKELETAL: Normally developed with good muscle tone. Course 173: Past medical records reviewed. The patient was evaluated in room A09B. A complete history and physical exam was performed. 1930: Upon reevaluation, I discussed findings and results with the patient. He verbalized agreement of the treatment plan. I spoke with Dr. Galdamez - [facility] Surgery. The patient will be evaluated for further management and care. Administered Medications Discontinued Medications Sodium Chloride (Nss 1000ml) 1,000 mls @ 999 mls/hr IV .Q1H1M ONE Stop: 04/03/19 19:09 Last Infusion: 04/03/19 19:35 Dose: 0 mls/hr Documented by: [id number] Admin: 04/03/19 18:15 Dose: 999 mls/hr Documented by: [id number] Medical Decision Making Differential Diagnosis Differential diagnosis: Etiologies such as viral syndrome, otitis, pharyngitis, pneumonia, influenza, meningitis, urinary tract infection, sepsis, bacteremia, as well as others were entertained. Medical Records Attestation: I reviewed the patient's medical records. Home Medications Current Medication List: was personally reviewed by me Laboratory Data Attestation: I reviewed the patient's lab results. Result diagrams: 04/03/19 18:02 04/03/19 18:02 Lab Results 04/03/19 04/03/19 04/03/19 Range/Units 18:02 18:02 18:02 WBC 13.29 H (4.8-10.8) K/uL RBC 3.59 L (4.7-6.1) M/uL Hgb 10.3 L (14.0-18.0) g/dL Hct 32.1 L (42-52) % MCV 89.4 (80-100) fL MCH 28.7 (25-34) pg MCHC 32.1 (32-36) g/dL RDW Std Deviation 48.8 H (36.4-46.3) fL RDW Coeff of Nabeel 14.7 H (11.5-14.5) % Plt Count 208 (130-400) K/uL MPV 11.8 H (7.4-10.4) fL Immature Gran % (Auto) 0.3 % Neut % (Auto) 75.8 % Lymph % (Auto) 13.1 % Whitfield % (Auto) 10.5 % Eos % (Auto) 0.1 % Baso % (Auto) 0.2 % Immature Gran # (Auto) 0.04 H (0.00-0.02) K/uL Neut # (Auto) 10.08 H (1.4-6.5) K/uL Lymph # (Auto) 1.74 (1.2-3.4) K/uL Whitfield # (Auto) 1.39 H (0.11-0.59) K/uL Eos # (Auto) 0.01 (0-0.5) K/uL Baso # (Auto) 0.03 (0-0.2) K/uL PT 10.9 (9.0-12.0) Seconds INR 1.1 (0.9-1.1) APTT 30.2 (21.0-31.0) Seconds PTT Ratio 1.1 Sodium 134 L (136-145) mmol/L Potassium 4.0 (3.5-5.1) mmol/L Chloride 104 (98-107) mmol/L Carbon Dioxide 25 (21-32) mmol/L Anion Gap 5.0 (3-11) BUN 17 (7-18) mg/dl Creatinine 1.49 H (0.6-1.4) mg/dl Est Cr Clr Drug Dosing 39.3 ml/min Est GFR ( Amer) 52.8 Est GFR (Non-Af Amer) 45.6 BUN/Creatinine Ratio 11.4 (10-20) Glucose 138 H (70-99) mg/dl POC Lactic Acid Greg (0.90-1.70) mmol/L Calcium 8.5 (8.5-10.1) mg/dl Magnesium 2.0 (1.8-2.4) mg/dl Total Bilirubin 0.5 (0.2-1) mg/dl AST 26 (15-37) U/L ALT 19 (12-78) U/L Alkaline Phosphatase 80 (45-117) U/L Troponin I < 0.015 (0-0.045) ng/ml Total Protein 8.2 (6.4-8.2) gm/dl Albumin 3.2 L (3.4-5.0) gm/dl Globulin 5.0 H (2.5-4.0) gm/dl Albumin/Globulin Ratio 0.6 L (0.9-2) 04/03/ Range/Units 18:08 WBC (4.8-10.8) K/uL RBC (4.7-6.1) M/uL Hgb (14.0-18.0) g/dL Hct (42-52) % MCV (80-100) fL MCH (25-34) pg MCHC (32-36) g/dL RDW Std Deviation (36.4-46.3) fL RDW Coeff of Nabeel (11.5-14.5) % Plt Count (130-400) K/uL MPV (7.4-10.4) fL Immature Gran % (Auto) % Neut % (Auto) % Lymph % (Auto) % Whitfield % (Auto) % Eos % (Auto) % Baso % (Auto) % Immature Gran # (Auto) (0.00-0.02) K/uL Neut # (Auto) (1.4-6.5) K/uL Lymph # (Auto) (1.2-3.4) K/uL Whitfield # (Auto) (0.11-0.59) K/uL Eos # (Auto) (0-0.5) K/uL Baso # (Auto) (0-0.2) K/uL PT (9.0-12.0) Seconds INR (0.9-1.1) APTT (21.0-31.0) Seconds PTT Ratio Sodium (136-145) mmol/L Potassium (3.5-5.1) mmol/L Chloride (98-107) mmol/L Carbon Dioxide (21-32) mmol/L Anion Gap (3-11) BUN (7-18) mg/dl Creatinine (0.6-1.4) mg/dl Est Cr Clr Drug Dosing ml/min Est GFR ( Amer) Est GFR (Non-Af Amer) BUN/Creatinine Ratio (10-20) Glucose (70-99) mg/dl POC Lactic Acid Greg 1.16 (0.90-1.70) mmol/L Calcium (8.5-10.1) mg/dl Magnesium (1.8-2.4) mg/dl Total Bilirubin (0.2-1) mg/dl AST (15-37) U/L ALT (12-78) U/L Alkaline Phosphatase (45-117) U/L Troponin I (0-0.045) ng/ml Total Protein (6.4-8.2) gm/dl Albumin (3.4-5.0) gm/dl Globulin (2.5-4.0) gm/dl Albumin/Globulin Ratio (0.9-2) Imaging Data Radiologist's Impression: Radiology results as stated below per my review and the radiologist's interpretation: XR chest 1V portable CLINICAL HISTORY: Sepsis COMPARISON STUDY: 04/03/2019 FINDINGS: The heart is normal in size. There is elevation right hemidiaphragm. There is right hilar prominence, unchanged from the prior study. Postsurgical changes of the right hemithorax are suspected. There is no failure. There is no focal pulmonary consolidation.[ IMPRESSION: Postsurgical change. No acute findings. Electronically signed by: John Elliott M.D. 04/03/2019 5:43 PM ECG Data Attestation: I personally reviewed and interpreted this ECG as follows: Indication: tachycardia Rate (beats per minute): 114 Rhythm: sinus tachycardia Findings: no PAC, no PVC, no ST elevation and no ectopy Comparison ECG Date: from (04/02/2019) Change: no significant change Blood Pressure Blood Pressure Findings: Elevated blood pressure Blood Pressure Disposition: further management by hospitalist RIGOBERTO Rizzo The patient is a 73-year-old male who presents to the ED with a chief complaint of low-grade fever and tachycardia. He was discharged from the hospital today after a right upper lobectomy 2 days ago. He was sent to the [facility]. At the [facility], the noticed a temperature of 100 and tachycardia. The patient was sent here for further evaluation. The patient denies any specific complaints. His physical exam was unremarkable and he does not appear to be in any distress. He does have a tachycardia and a twelve-lead EKG shows a sinus tach at a rate of 117. Chest x-ray did not show acute process. White blood cell count is 13.3. Hemoglobin is 10.3. Troponin was negative. [id number] lactic acid was normal. The patient was treated with some IV fluids. He was given 1 L normal saline IV. I spoke with Dr. Abbasi about the patient. He will place the patient back in observation the hospital for evaluation of his symptoms. Impression & Plan Tachycardia, Fever, low grade Discharge Plan Visit Data *Final* Discharge Date/Time: 04/03/19 19:49 Chief Complaint: Illness Stated Complaint: FEVER/CHILLS ED Provider: Ever Sosa Discharge Problem: Tachycardia, Fever, low grade Patient Disposition: Admitted As Inpatient Discharge Instructions Interventions: ED Discharge Assessment Last Done: 04/03/19 19:49 The scribe's documentation has been prepared under my direction and personally reviewed by me in its entirety. I confirm that the note above accurately reflects all work, treatment, procedures, and medical decision making performed by me.
[2019-04-03] MEDS ORDERED: OXYCODONE HCL IR 5 MG TAB (IMMEDIATE RELEASE) PO PRN (20:00)
[2019-04-03 20:01] LABS: Bacteria Urine Negative (Negative); Epithelial Cell Urine 0-5 /lpf (0-5); RBC Urine 0-4 /hpf (0-4); WBC Urine 0-5 /hpf (0-5)
[2019-04-03] MEDS: METOPROLOL SUCC 25MG EXT REL TAB PO SCH (20:44)
[2019-04-03] MEDS ORDERED: METFORMIN HCL 500 MG TAB PO SCH (21:00)
[2019-04-03] MEDS ORDERED: PHARMACY GLYCEMIC MGMT CONSULT PRN (21:09)
[2019-04-03] MEDS ORDERED: GLUCOSE 40% GEL 15 GM TUBE PO PRN (22:00)
[2019-04-03] MEDS ORDERED: CARBOHYDRATES FOR HYPOGLYCEMIA PO PRN (22:00)
[2019-04-03] MEDS ORDERED: GLUCAGON FOR INJ 1 MG VIAL SQ PRN (22:00)
[2019-04-03] MEDS ORDERED: DEXTROSE 50% 50 ML SYRINGE IV PRN (22:00)
[2019-04-03] MEDS ORDERED: GLUCOSE 10 TABS/TUBE PO PRN (22:00)
[2019-04-03] MEDS: TIMOLOL MALEATE 0.25% OP SOLN 5 ML BTL OP SCH (22:25)
[2019-04-03] MEDS: INSULIN ASPART 100 UNITS/ML 3 ML PEN SC SCH (23:10)
[2019-04-04 07:33] LABS: Estimated Average Glucose 134 mg/dl; Hemoglobin A1C 6.3 % (4.5-5.6)
[2019-04-04] MEDS: TIMOLOL MALEATE 0.25% OP SOLN 5 ML BTL OP SCH ×2 (09:07→21:01)
[2019-04-04] MEDS: ENOXAPARIN INJ 30 MG/0.3 ML SYR SQ SCH (09:07)
[2019-04-04] MEDS: ENALAPRIL MALEATE 5 MG TAB PO SCH (09:07)
[2019-04-04] MEDS: METOPROLOL SUCC 25MG EXT REL TAB PO SCH (09:07)
[2019-04-04] MEDS: ASPIRIN 81 MG ECTAB PO SCH (09:07)
[2019-04-04] MEDS: INSULIN ASPART 100 UNITS/ML 3 ML PEN SC SCH ×4 (09:08→21:26)
--- NOTE | 2019-04-04 09:57 | Progress Note ---
DATE: 04/04/2019 Mr. Manuel was seen today. He looks great. He is ambulating in the hallway. The only problem is his heart rate is high. It is 118 on my evaluation today. I started him on a beta edison last night. He is not wheezing. His saturations are 97% on room air. I am going to ask cardiology to evaluate him. I am also going to supplement his magnesium. I am also going to continue his beta edison. His blood pressure is better at 140/80. He is tolerating a diet. He has very little in the way of pain. I may send him back to the facility tomorrow depending on how he feels. ALYSSA
--- NOTE | 2019-04-04 10:34 | Cardiology Consultation ---
Date of Consultation April 04, 2019 Assessment & Plan (1) Tachycardia: His heart rate is fast, it is consistently over 100 although not always. It does not appear to be an abnormal rhythm such as an atrial tachycardia although that is possible if it originates near the sinus node. He is unaware of it and it does not seem to interfere with activity therefore it is probably not an issue and less it is affecting his heart function or if it is secondary to some other type of heart disease such as cardiomyopathy. I agree with beta- blockade, despite his lung disease I think would be safe to go up on that and his blood pressure is a little bit elevated as well. I will increase his beta- blockade. (2) History of cardiac murmur: He has a history of a heart murmur but he does not know what it was and it does not sound as though it has been evaluated (he does not seem to recognize echocardiography). I would like to get an echocardiogram, I would like to see if he has significant valvular abnormalities although on exam he does not seem to but that can be misleading. History of Present Illness Reason for Consultation: Tachycardia Attending Physician: Zoltan Galdamez MD, [facility] History of Present Illness This is a 73-year-old male prisoner from the [facility] who was admitted with respiratory issues and required surgery. He was observed to have an elevated heart rate consistently. He does not recall ever being told he had a heart rate issue, he does not feel it, now or in the past. He has been active historically and even in the hospital with no difficulty with exertion and no palpitations with exertion. He has been told that he had a heart murmur, he does not recall ever having a stress test, echocardiogram or being told what caused the murmur. I do not have a lot of records of some of this may have been explored in the past but he is unaware of it. At this time he is feeling well, as noted above he has been active, he has no significant chest discomfort. He has no exertional symptoms and is not short of breath. Allergies Allergy/AdvReac Type Severity Reaction Status Date / Time penicillin V Allergy Unknown UNKN Verified 04/03/19 16:38 Home Medications Home Medications Medication Instructions Recorded Confirmed Type aspirin [Aspirin Low Dose] 81 mg PO QAM 01/06/19 04/03/19 History enalapril maleate 5 mg PO QAM 01/06/19 04/03/19 History metformin 500 mg PO BID 01/06/19 04/03/19 History timolol 1 drp OPHTHALMIC (EYE) BID 01/06/19 04/03/19 History Patient History Medical History Diabetes mellitus, type 2 NIDDM HTN (hypertension) Heart murmur per anesthesia questionnaire Hemoptysis CURRENT ISSUE History of anemia Hx of eczema Inmate in correction[facility] facility [facility] History Hx of cataract extraction S/P bronchoscopy with biopsy p Endobronchial Ultrasound Flexible Bronchoscopy with Biopsies dr. Galdamez 01-30-19 Family History Other No pertinent family history Social History Preferred Language: Botswanan Communication Ability: Effective Provider Relations Coordinator Required: No Beliefs That Will Affect Care: None Current Living Situation: Other Current Living Situation Comment: correctional facility Feels Safe at Home: Yes Smoking Status: Former smoker Second Hand Exposure: No ; Hx Alcohol Use: No Hx Substance Use: No Review of Systems Review of Systems: All systems reviewed & are unremarkable except as noted in HPI & below Physical Exam Physical Exam: Constitutional: Alert, cooperative and in no distress. HEENT: Unremarkable Neck: No jugular venous distention, carotid pulses are normal and equal bilaterally without bruits. Pulmonary: Clear to auscultation bilaterally. Cardiac: Regular somewhat rapid rhythm with no murmur that I can hear, gallop or rub. Abdomen: Soft, nontender with normal bowel sounds. Extremities: No edema. Distal pulses intact. Neurologic: No focal findings. Gait is steady. Skin: No rash, ecchymoses or petechiae. Results & Data Vital Signs (Past 12 Hours) Vital Signs Temp Pulse Resp BP Pulse Ox 04/04/19 09:10 110 H 140/80 04/04/19 07:09 37 C 109 H 16 135/74 96 04/03/19 23:25 37.3 C 102 H 16 157/86 H 95 Diagnostic Findings Electrocardiogram show sinus tachycardia with a P wave morphology which looks like sinus. Heart rates in the low 100s. PG Care Time/CCT Total # of Minutes Spent Total Time Spent with Patient: Total time spent is greater than 50% in coordination of care (as documented) at patient's floor/unit and/or counseling patient:
[2019-04-04] MEDS: MAGNESIUM SULFATE / D5W 1 GM/100 ML BAG IV SCH ×2 (10:39→11:58)
[2019-04-05] MEDS: METOPROLOL SUCC 25MG EXT REL TAB PO SCH (09:17)
[2019-04-05] MEDS: ENOXAPARIN INJ 30 MG/0.3 ML SYR SQ SCH (09:17)
[2019-04-05] MEDS: ENALAPRIL MALEATE 5 MG TAB PO SCH (09:17)
[2019-04-05] MEDS: TIMOLOL MALEATE 0.25% OP SOLN 5 ML BTL OP SCH (09:18)
[2019-04-05] MEDS: INSULIN ASPART 100 UNITS/ML 3 ML PEN SC SCH ×2 (09:18→13:21)
[2019-04-05] MEDS: ASPIRIN 81 MG ECTAB PO SCH (09:19)
--- NOTE | 2019-04-05 11:37 | Cardiology Progress Note ---
Date of Service April 05, 2019 Assessment & Plan (1) Tachycardia: His heart rate is fast, it is generally over 100 although not always. It does not appear to be an abnormal rhythm such as an atrial tachycardia although that is possible if it originates near the sinus node. He is unaware of it and it does not seem to interfere with activity therefore it is probably not an issue, especially in view of it not affecting his left ventricular function. I agree with beta-blockade, despite his lung disease I think it would be safe to go up on that and his blood pressure is a little bit elevated as well. He also has left ventricular hypertrophy which may respond to beta-blockade. (2) History of cardiac murmur: He has a history of a heart murmur but he did not know what it was and it does not sound as though it has been evaluated (he does not seem to recognize echocardiography). He did not have a significant murmur on exam, and echocardiography does not show any significant valvular abnormalities. He has only mild MR and TR which is not consequential. I would not further evaluate this. (3) HBP (high blood pressure): He does have high blood pressure although on his current regimen it is better. Given his left ventricular hypertrophy I would use beta-blockade to treat his hypertension as long as he tolerates it with his lung disease, generally it does not affect lung function, especially using metoprolol which is cardiac selective. (4) LVH (left ventricular hypertrophy): He has mild left ventricular hypertrophy which is probably due to long- standing hypertension. His valvular abnormalities would not explain it. Beta- edison would be a good therapy for his hypertension and his left ventricular hypertrophy. Subjective He is feeling well and has no complaints. No palpitations or awareness of his heart rate. Physical Exam Physical Exam: Constitutional: Alert, cooperative and in no distress. Pulmonary: Clear to auscultation bilaterally. Cardiac: Regular somewhat rapid rhythm with no significant murmur, gallop or rub. Abdomen: Soft, nontender with normal bowel sounds. Extremities: No edema. Skin: No rash, ecchymoses or petechiae. Results & Data Vital Signs (Past 12 Hours) Vital Signs Temp Pulse Resp BP BP Pulse Ox 04/05/19 09:15 112 H 132/73 04/05/19 07:42 36.7 C 82 16 145/80 H 95 Laboratory Results Abnormal lab results 04/04/19 04/04/19 04/05/19 Range/Units 12:00 20:42 08:01 POC Glucose 137 H 120 H 155 H (70-99) Diagnostic Findings Echocardiography: Normal left ventricular systolic function, mild left ventricular hypertrophy. Ejection fraction 55 to 60%. Only mild valvular abnormalities with mild mitral regurgitation and mild tricuspid regurgitation. PG Care Time/CCT Total # of Minutes Spent Total Time Spent with Patient: Total time spent is greater than 50% in coordination of care (as documented) at patient's floor/unit and/or counseling patient:
--- NOTE | 2019-04-05 23:24 | Discharge Summary ---
DISCHARGE DIAGNOSES: 1. Tachycardia of unknown etiology. 2. Status post lobectomy 04/01/2019 for chronic occlusion of segmental bronchus and postobstructive atelectasis. 3. Diabetes mellitus. 4. Hypertension. HOSPITAL COURSE: Salvador Manuel is a 73-year-old inmate who has had chronic occlusion of the anterior segment of his right upper lobe with subsequent dilatation of his airways and chronic cough with sputum production. We do not believe this is a malignancy based on our biopsies; however, I attempted to do a segmentectomy, but he also has evidence of granulomatous disease with markedly calcified lymph nodes, which were intimately involved with the vessels. For this reason, I went ahead and performed a lobectomy. I did this robotically. He did very well with this. He was discharged on postop day #2; however, when he got back to the [facility], he was noted to be tachycardic as high as 128. He had no symptoms from this. He had very little in the way of pain. He was not hypoxic. He was ambulating, tolerating a regular diet. At present, the infirmary at the [facility] said that they could not keep him with the heart rate that high, so he was sent back to the ER. He looked very good, however we admitted him. I watched him overnight and he remained tachycardic. I finally got Dr. Andrea Morton from cardiology see him. An echocardiogram was performed, which actually was fairly unremarkable except for mild mitral and tricuspid regurgitation. He had preserved LV function. I discharged him home today. His heart rate was down in the 80s. We had started him on a beta edison. He was on metoprolol 25 mg extended release daily. We will send him back to the [facility] today and I will see him back in the office in the next couple of weeks.
--- NOTE | 2019-04-06 14:56 | History and Physical Report ---
DATE OF ADMISSION: 04/03/2019 Mr. Manuel was seen today on 04/03/2019. He was discharged earlier today after I performed a lobectomy 2 days ago. It appeared to be for benign reasons, but he had complete obstruction of a segmental airway with a chronic infection due to a post-obstructive atelectasis. At any rate, he went home and looked quite good to me. He is on room air, ambulating, he has his chest tube out. His x-ray looked good. He went to the [facility] where he was in the [facility] and he was sent back and due to the fact that he was tachycardic, his heart rate was 128 and the physician in the facility was uncomfortable. All of his labs looked good. They stated there was a fever spike, although he did not have a fever when I saw him. He really had no pain and was ambulating in the hallway. I am going to go ahead and readmit him. I am going to start him on a beta edison tonight and if he does not improve, I will have Cardiology see him in the morning. All of his incisions were clean. He sounds good. His x-ray looks good. ASSESSMENT AND PLAN: Tachycardia of unknown etiology, status post lobectomy. We will readmit him and have Cardiology see him in the morning if he does not respond to a magnesium supplementation and a beta edison. For details of this history and physical, please see my detailed office note.
== END 2019-04-05 13:48 ==
LOC: 3N 16:18 → ED 16:18 → 3N 19:49